=== PATIENT | male | born 1960 | race Caucasian/White ===

== ENCOUNTER → 2016-10-22 | Outpatient (CLI) | payer BC ==
[~2016-10-22] MED LIST: ACETAMINOPHEN-H1 TA2 PO; AMARYL4 MG PO; ANUSOL-HC2.5% TOP; ASPIR LOW81 MG PO; ASTELIN137 MCG/AC NAS; ASTELIN137 MCG/AC NS; BENZONATATE100 M1 PO; BYETTA250 MCG/ML SQ; CALAN SR 120MG120 MG PO; COZAAR50 MG PO; EPA FISH OIL1000 MG PO; FLOMAX 0.40.4 MG/CAP PO; FLOMAX0.4 MG PO; HCTZ 25MG25 MG PO; HYDROCHLOROTHIA25 MG PO; IMITREX100 MG PO; LORTAB 10/500 51 TA1 PO; METFORMIN HCL500 MG PO; MULTI VITAMINS1 TAB PO; OMNICEF 300MG300 MG PO; PATANOL OPHTHALM5 ML OS; PRISTIQ100 MG PO; RELPAX 40MG TAB40 MG; SYNTHROID0.05 MG PO; TESTOSTERO200 MG/1 M IM; TUSSIONEX PENNKI5 ML PO; VERAPAMIL HCL240 M2 PO; VICTOZA6 MG/ML SC; VOLTAREN GEL 1%1 TU TOP; WELCHOL 625MG625 MG PO; XANAX0.5 MG PO; ZYLOPRIM300 MG PO
== END ==
LOC: RAD 07:45
DX: J01.41 Acute recurrent pansinusitis (principal); J01.00 Acute maxillary sinusitis, unspecified

== ENCOUNTER → 2017-02-26 | Outpatient (REF) ==
[2016-05-03 08:45] VITALS: BP 114/72
== END ==
LOC: LAB 08:01
DX: B35.1 Tinea unguium (principal); E11.9 Type 2 diabetes mellitus without complications

== ENCOUNTER → 2017-04-05 | Outpatient (REF) ==
[2016-05-03 08:45] VITALS: BP 114/72
== END ==
LOC: LAB 08:01
DX: B35.1 Tinea unguium (principal); E11.9 Type 2 diabetes mellitus without complications

== ENCOUNTER → 2017-05-28 | Outpatient (CLI) | payer BC ==
[2016-05-03 08:45] VITALS: BP 114/72
== END ==
LOC: RAD 09:31
DX: S92.422A Displaced fracture of distal phalanx of left great toe, initial encounter for closed fracture (principal); W22.8XXA Striking against or struck by other objects, initial encounter

== ENCOUNTER → 2017-10-07 | Outpatient (CLI) | payer BC ==
[~2017-10-07] VITALS: Ht 175.3 cm; Wt 113.2 kg
[~2017-10-07] MED LIST changes: +ALPRAZOLAM ER0.5 MG PO; +AMARYL4 M1 PO; -AMARYL4 MG PO; +SYNTHROID0.075 MG PO
[2017-10-07 11:30] VITALS: BP 118/82
== END ==
LOC: AMSURD 10:45
DX: Z01.818 Encounter for other preprocedural examination (principal)

== ENCOUNTER 2020-06-27 11:27 | Emergency (ER) | payer OTHER ==
[~2020-06-27] VITALS: Ht 175.3 cm; Wt 104.5 kg
[2020-06-27 11:37] VITALS: BP 152/97
[2020-06-27] MEDS ORDERED: TRULICITY1.5 MG/0.5 SC (11:41)
[2020-06-27] MEDS ORDERED: VALIUM 5MG T5 MG/TAB PO (14:05)
[2020-06-27] MEDS ORDERED: NORCO 325 MG-51 TA1 PO (14:05)
== END 2020-06-27 14:12 | disposition home or self-care (01) ==
LOC: ED 11:27
DX: S13.4XXA Sprain of ligaments of cervical spine, initial encounter (principal); E11.9 Type 2 diabetes mellitus without complications; I10 Essential (primary) hypertension; F41.9 Anxiety disorder, unspecified; M10.9 Gout, unspecified; N40.0 Benign prostatic hyperplasia without lower urinary tract symptoms; Z90.49 Acquired absence of other specified parts of digestive tract; Z88.2 Allergy status to sulfonamides; Z88.8 Allergy status to other drugs, medicaments and biological substances; Z79.82 Long term (current) use of aspirin; Z79.84 Long term (current) use of oral hypoglycemic drugs; V89.2XXA Person injured in unspecified motor-vehicle accident, traffic, initial encounter; W22.10XA Striking against or struck by unspecified automobile airbag, initial encounter

== ENCOUNTER → 2020-09-05 | Outpatient (CLI) | payer BC ==
[~2020-09-05] MED LIST changes: +NORCO 325 MG-51 TA1 PO; +TRULICITY1.5 MG/0.5 SC; +VALIUM 5MG T5 MG/TAB PO
== END ==
LOC: RAD 08:37
DX: J01.90 Acute sinusitis, unspecified (principal)